=== PATIENT | female | born 1935 | race Caucasian/White ===

== ENCOUNTER → 2017-04-29 | Outpatient (CLI) | payer MEDICARE, OTHER ==
--- NOTE | 2017-04-30 20:43 | RADIOLOGY IMAGING REPORT ---
FACILITY: [facility] PATIENT NAME: DEBO KYLE : [id number] MR: [id number] V: [id number] EXAM DATE: ORDERING PHYSICIAN: CHRISTOPHER SOLIS TECHNOLOGIST: Migdalia Cee EXAMINATION:TWO-DIMENSIONAL ECHOCARDIOGRAPH REASON:CHRONIC VENOUS INSUFFICIENCY AND PERIPHERAL EDEMA. 2D Measurements (normal values in centimeters) LV endLV endRV endVent.LV PostAorticLeftPercent DiastolicSystolicDiastolicSeptumWallRootAtriumShortening (3.5-5.7)(0.9-2.6)(0.6-1.1)(0.6-1.1)(2.0-3.7)(1.9-4.0)(25-35%) [id number]% STRKE VOLUME: 68 Ml. ESTIMATED EJECTION FRACTION:61% PARASTERNAL LONG AXIS: Overall left ventricular systolic function appears to be normal. No wall motion abnormalities are noted. The right ventricle appears to be enlarged. Other chamber sizes are normal. Aortic valve and mitral valve both appear to open normally. Color examination of the valves reveals a trace of mitral insufficiency and a trace to mild amount of tricuspid insufficiency present. PARASTERNAL SHORT AXIS: Overall left ventricular systolic function again appears to be normal. No wall motion abnormalities are noted. Aortic valve is trileaflet in configuration and appears to open normally with mild aortic sclerosis but no stenosis. Color examination of the pulmonic valve reveals a trace to mild amount of pulmonic insufficiency. APICAL FOUR AND TWO CHAMBER: Normal left ventricular ejection fraction. Chamber sizes also appear to be normal. The left atrial and right atrial volumes measure within normal range at 21 and 23 ml/m2. Aortic valve area and mitral valve area both measure within normal range at 2.2 and 3.4 cm2 respectively. Tricuspid regurgitation V-max is measured at 4.09 m/sec. SUBCOSTAL VIEW: No pericardial effusion was noted. No atrial septal or ventricular septal defects were appreciated. The right ventricle appears to be enlarged. Also appears to be probable right ventricular hypertrophy. The right ventricular function appears to be normal. TAPSE is measured at 2.0. Doppler examination of the mitral valve in diastole does reveal the A wave greater than the E wave. IVC is normal in size. OVERALL IMPRESSION: 1. Normal left ventricular systolic function, estimated ejection fraction of 61% with a grade 1/4 decrease in diastolic function. 2. Normal chamber size except for the right ventricle which appears to be mild to borderline moderately enlarged and possibly some right ventricular hypertrophy is noted. The atria are normal in size. No left ventricular hypertrophy is noted. 3. A trileaflet aortic valve with mild aortic sclerosis but no stenosis. 4. A trace to mild amount of pulmonic insufficiency. 5. A trace amount of mitral insufficiency. 6. A mild to borderline moderate amount of tricuspid insufficiency with estimated right ventricular systolic pressure of 70 mmHg which does include an estimated right atrial pressure of 3 mmHg indicating severe pulmonary hypertension and increased right ventricular systolic pressures. 7. In comparison to the examination done on May 05, 2009, the right ventricle has become slightly more enlarged. The right ventricular systolic pressures are approximately the same. No other changes were noted. Dictated by: Krysten Delcid M.D. on 04/29/2017 at 20:12 Transcribed by: SORIN on 04/30/2017 at 15:21 Approved by: Krysten Delcid M.D. on 04/30/2017 at 20:41 [facility]
== END ==
LOC: US 07:15
PROVIDERS: ATTEND Family Medicine
DX: I51.7 Cardiomegaly (principal); I35.8 Other nonrheumatic aortic valve disorders; I37.1 Nonrheumatic pulmonary valve insufficiency; I34.0 Nonrheumatic mitral (valve) insufficiency; I27.20 Pulmonary hypertension, unspecified
CPT/HCPCS: 93306

== ENCOUNTER → 2017-05-14 | Outpatient (CLI) | payer MEDICARE, OTHER ==
[~2017-05-14] MED LIST: IOPAMIDOL 76% 75 ML INFUS BTL 75 ML ONE; NS 0.9% 50 ML VIAL 100 ML ONE
--- NOTE | 2017-05-14 12:08 | RADIOLOGY IMAGING REPORT ---
FACILITY: [facility] - [place], [place] PATIENT NAME: Galina Stone : 1935 MR: [id number] V: [id number] EXAM DATE: ORDERING PHYSICIAN: CHRISTOPHER SOLIS TECHNOLOGIST: Location: [facility] - [place] Patient: Galina Stone : 1935 Visit/Account:[id number] Date of Sevice: 05/14/2017 CTA CHEST WW/O [facility]TR (PULM ANG) HISTORY: Pulmonary hypertension ADDITIONAL HISTORY: None. TECHNIQUE: CTA chest with intravenous contrast. Axial imaging acquired following administration of IV contrast timed for maximum opacification of the pulmonary arterial vasculature. Slab 3-D MIP venkatesh nstructed images were also created for further evaluation and interpretation. Reconstruction of the [facility] data set includes multiplanar 2-D in the sagittal and coronal planes and 3-D reconstructed melo nal slab MIP series. 3-D images were created by the technologist. Dose Lowering Technique One of the following dose optimization techniques was utilized in the performance of this exam: Autom ated exposure control; adjustment of the mA and/or kV according to the patient's size; or use of an i terative reconstruction technique. Specific details can be referenced in the facility's radiology C T exam operational policy. CONTRAST: 75 mL Isovue-370 COMPARISON: February 13, 2017 FINDINGS: Lungs/pleura: The linear stranding with small air bronchograms in the anterior inferior right middle lobe remains stable and likely represents an area of scarring or chronic atelectasis. There Is a sm all area of irregular pleural thickening along the posterolateral right upper lobe not appreciated pr eviously. Coarse linear stranding with air bronchograms in the medial left upper lobe appears slight ly more prominent Heart/vessels: There is no demonstration of pulmonary emboli.. The main pulmonary artery measures 35.5 mm in transverse diameter which is above the normal range of 28.6 mm.. There are calcifications at the aortic root, coronary arteries and within the aortic arch and descending thoracic aorta. Mediastinum/lymph nodes: Small pretracheal lymph nodes are unchanged Visualized upper abdomen: Very large hiatal hernia containing most of the stomach again noted. Chol elithiasis again present Bones/soft tissues: Moderate spondylotic changes of the visualized cervical and thoracic spine. Sev ere disc space narrowing at T11-12 again seen with mild loss of height of the T12 vertebral body Additional findings: None IMPRESSION: There is dilatation of the pulmonary trunk consistent with history of pulmonary arterial hypertension Very large hiatal hernia containing most of the stomach Cholelithiasis There is linear stranding with small air bronchograms in the anterior inferior right middle lobe that remains stable likely represents an area of chronic scarring or atelectasis. There is a new area of irregular pleural thickening along the posterior lateral right upper lobe. Co arse linear stranding with air bronchograms in the medial left upper lobe appears more prominent. Al though this could represent progressive scarring or atelectasis given the interval change short-term interval follow-up recommended Report Dictated By: Aydee Gill MD at 05/14/2017 11:51 AM Report E-Signed By: Aydee Gill MD at 05/14/2017 12:05 PM WSN:[email or web address]
== END ==
LOC: CT 01:40
PROVIDERS: ATTEND Family Medicine
DX: R91.8 Other nonspecific abnormal finding of lung field (principal); K44.9 Diaphragmatic hernia without obstruction or gangrene; K80.20 Calculus of gallbladder without cholecystitis without obstruction
CPT/HCPCS: 36415; 71275; 82565; J7050; Q9967